=== PATIENT | female | born 1980 | race Caucasian/White ===

== ENCOUNTER 2019-11-24 09:12 | Day surgery (SDC) | payer OTHER ==
[~2019-11-24] VITALS: Ht 149.9 cm; Wt 59.0 kg
[~2019-11-24 09:12] MED LIST: BUPIVACAINE/PF-EPI 0.5% 1:200K ONE; FENTANYL PF 100 MCG/2ML ONE; MIDAZOLAM 1 MG/ML, 2ML ONE
[2019-11-24] MEDS ORDERED: LACTATED RINGERS 1,000 ML IV SCH (09:25)
[2019-11-24 09:30] VITALS: BP 145/78
[2019-11-24] MEDS ORDERED: CHLORHEXIDINE 15 ML UDC MM ONE (09:30)
[2019-11-24 09:51] LABS: HCG UR SG 1.022 (1.003-1.030)
[2019-11-24] MEDS ORDERED: SUGAMMADEX 200 MG/2 ML IVPush ONE (09:53)
[2019-11-24] MEDS ORDERED: CEFOTETAN 2 GM ONE (09:53)
[2019-11-24] MEDS ORDERED: KETOROLAC 30 MG/1 ML ONE (09:53)
[2019-11-24] MEDS ORDERED: FENTANYL PF 100 MCG/2ML IV PRN (10:00)
[2019-11-24] MEDS ORDERED: MEPERIDINE/PF 25MG/0.5ML IVPush PRN (10:00)
[2019-11-24] MEDS ORDERED: LORazepam 2 MG/ML, 1ML IVPush PRN (10:00)
[2019-11-24] MEDS ORDERED: ALBUTEROL SULFATE 2.5 MG/3 ML NPPB PRN (10:00)
[2019-11-24] MEDS ORDERED: LABETALOL 5MG/ML, 20ML IV PRN (10:00)
[2019-11-24] MEDS ORDERED: ACETAMINOPHEN 325 MG TABLET PO PRN (10:00)
[2019-11-24] MEDS ORDERED: HYDROmorphone 1 MG/ML, 1ML INJ IVPush PRN (10:00)
[2019-11-24] MEDS ORDERED: OXYcodone 5 MG/5 ML ORAL.SOL UDC PO PRN (10:00)
[2019-11-24] MEDS ORDERED: hydrALAzine 20 MG/ML, 1ML IV PRN (10:00)
[2019-11-24] MEDS ORDERED: PROMETHAZINE 25 MG/ML, 1ML IVPush PRN (10:00)
[2019-11-24] MEDS ORDERED: DEXAMETHASONE 4 MG/ML, 1ML ONE (10:15)
[2019-11-24] MEDS ORDERED: NEOSTIGMINE 1 MG/ML, 10ML ONE (10:15)
[2019-11-24] MEDS ORDERED: GLYCOPYRROLATE 0.2MG/1ML, 5ML ONE (10:15)
[2019-11-24] MEDS ORDERED: ROCURONIUM 10MG/ML,5ML ONE (10:15)
[2019-11-24] MEDS ORDERED: CEFAZOLIN 1,000 MG ONE (10:15)
[2019-11-24] MEDS ORDERED: SUCCINYLCHOLINE 20 MG/ML, 10ML ONE (10:15)
[2019-11-24] MEDS ORDERED: ONDANSETRON 2MG/ML, 2ML ONE (10:15)
[2019-11-24] MEDS ORDERED: PROPOFOL 10 MG/ML, 20ML ONE (10:15)
== END 2019-11-24 12:45 | disposition home or self-care (01) ==
LOC: OUT 09:12
PROVIDERS: ATTEND Surgery
DX: K80.10 Calculus of gallbladder with chronic cholecystitis without obstruction (principal); Z11.59 Encounter for screening for other viral diseases; F17.210 Nicotine dependence, cigarettes, uncomplicated; Z98.890 Other specified postprocedural states
CPT/HCPCS: 36415; 47562; 81025; 87635; 88304; J0330; J0690; J1100; J1885; J2250; J2405; J2704; J2710; J3010; J3490; J7120